=== PATIENT | female | born 1945 | race Caucasian/White ===

== ENCOUNTER 2021-07-14 17:02 | Emergency (ER) | payer OTHER ==
[~2021-07-14] VITALS: Ht 154.9 cm; Wt 97.5 kg
[2021-07-14] MEDS ORDERED: ELIQUIS2.5 MG PO (17:51)
[2021-07-14] MEDS ORDERED: VENTOLIN HFA 1818 GM INH (17:51)
[2021-07-14] MEDS ORDERED: TOPROL XL100 MG PO (17:51)
[2021-07-14] MEDS ORDERED: HYDROCODON-ACE1 EAC7 PO (20:04)
[2021-07-14 20:16] VITALS: BP 145/70
== END 2021-07-14 20:16 | disposition home or self-care (01) ==
LOC: M.ERS 17:02
DX: M25.561 Pain in right knee (principal); J44.9 Chronic obstructive pulmonary disease, unspecified; I10 Essential (primary) hypertension; Z90.710 Acquired absence of both cervix and uterus; Z79.899 Other long term (current) drug therapy; Z88.5 Allergy status to narcotic agent